=== PATIENT | female | born 1950 | race Caucasian/White ===

== ENCOUNTER 2016-04-27 17:07 | Inpatient (IN) | payer MEDICARE, OTHER ==
[2016-04-27] VITALS (10 sets, daily range): BP systolic 89–115; BP diastolic 53–70
[~2016-04-27] VITALS: Ht 165.1 cm; Wt 77.6 kg
[2016-04-27] MEDS ORDERED: IV NS 0.9% 1,000 ML ONE (17:21)
[2016-04-27] MEDS ORDERED: IV SET PRIMARY PUMP SET 1 EA INFUS.SET MC ONE ×6 (17:21→23:17)
[2016-04-27 17:26] LABS: BASOPHILS % (AUTO) 0.2 % (0.0-2.0); DIFF TOTAL % 100 %; EOSINOPHILS % (AUTO) 0.1 % (0.0-6.0); HEMATOCRIT 22 % (33-45); LYMPHOCYTES # (AUTO) 2.4 /CMM (0.8-4.8); LYMPHOCYTES % (AUTO) 12.5 % (20.0-44.0); MEAN CORPUSCULAR HEMOGLOBIN 27 PG (26.0-33.0); MEAN CORPUSCULAR HGB CONC 32 g/dl (31.0-36.0); MEAN CORPUSCULAR VOLUME 86 fL (82-100); MONOCYTES # (AUTO) 1.4 /CMM (0.1-1.30); MONOCYTES % (AUTO) 7.2 % (2.0-12.0); NEUTROPHILS # (AUTO) 15.4 /CMM (1.8-8.9); PLATELET COUNT (AUTO) 78 /CMM (150-450); RED BLOOD CELL COUNT(AUTO) 2.53 MIL/uL (4.0-5.2); WHITE BLOOD COUNT (AUTO) 19.2 K/uL (4.3-11.0)
[2016-04-27] MEDS ORDERED: IV NS 0.9% 1,000 ML BAG IV ONE (17:30)
[2016-04-27 17:35] LABS: HEMOGLOBIN 6.9 g/dL (11.5-14.8)
[2016-04-27] MEDS ORDERED: METO5TAB87 GT (17:37)
[2016-04-27] MEDS ORDERED: FAMO-131 GT (17:37)
[2016-04-27] MEDS ORDERED: ESCI5TAB PO (17:37)
[2016-04-27] MEDS ORDERED: INSU3INS6 SQ (17:37)
[2016-04-27] MEDS ORDERED: POTA40LI2 GT (17:37)
[2016-04-27] MEDS ORDERED: FURO-145 GT (17:37)
[2016-04-27] MEDS ORDERED: DEXA1TAB2 GT (17:37)
[2016-04-27 17:38] LABS: INR 1.31 (0.87-1.13); PROTHROMBIN TIME 13.8 SECS (9.5-12.7)
[2016-04-27 17:46] LABS: TROPONIN I 0.022 ng/mL (0.00-0.056)
[2016-04-27 17:50] LABS: ALANINE AMINOTRANSFERASE 32 U/L (12-78); ANION GAP 20 (5-14); ASPARTATE AMINOTRANSFERASE 77 U/L (15-37); BILIRUBIN,DIRECT 0.1 mg/dL (0.0-0.2); BILIRUBIN,TOTAL 0.4 mg/dL (0.2-1.0); CALCIUM, SERUM 7.2 mg/dL (8.5-10.1); CARBON DIOXIDE 23 mmol/L (21-32); CHLORIDE 94 mmol/L (98-107); CREATININE 2.1 mg/dL (0.6-1.3); GFR 23 mL/min (>60); GLUCOSE 188 mg/dL (74-106); INDIRECT BILIRUBIN 0.3 mg/dL (0.0-1.1); POTASSIUM 4.4 mmol/L (3.5-5.1); SODIUM SERUM 133 mmol/L (136-145); TOTAL PROTEIN, SERUM 4.5 g/dL (6.4-8.2)
[2016-04-27] MEDS ORDERED: PANTOPRAZOLE 40 MG VIAL IV ONE (18:00)
[2016-04-27 18:02] LABS: ALBUMIN 1.1 g/dL (3.4-5.0); UREA NITROGEN, BLOOD 132 mg/dL (7-18)
[2016-04-27] MEDS ORDERED: PANTOPRAZOLE 40 MG VIAL ONE (18:08)
[2016-04-27 18:09] LABS: KETONES,URINE Trace (NEGATIVE); LEUKOCYTE ESTERASE ,URINE Trace (NEGATIVE)
[2016-04-27 18:11] LABS: ADD UA MICROSCOPIC YES
[2016-04-27 18:13] LABS: LACTIC ACID 9.5 mmol/L (0.4-2.0)
[2016-04-27 18:19] LABS: *LACTIC ACID REFLEX FLAG YES
[2016-04-27] MEDS ORDERED: ALBUMIN 5% 25 GM in PREMIX 1 EA IV ONE (18:30)
[2016-04-27] MEDS ORDERED: PIPERACILLIN /TAZOBACTAM 3.375 G in IV D5W 50 ML IV ONE (18:30)
[2016-04-27 18:32] LABS: ADD URINE CULTURE YES; RBC,URINE 21-50 /HPF (0-2)
[2016-04-27] MEDS ORDERED: ALBUMIN 25% 12.5 GM/50 ML BOTTLE IV ONE (19:00)
[2016-04-27] MEDS ORDERED: BLOOD IV SET 1 EA INFUS.SET MC ONE ×3 (19:32→22:06)
[2016-04-27] MEDS ORDERED: IV NS 0.9% 250 ML IV ONE ×3 (19:32→23:05)
[2016-04-27] MEDS ORDERED: CHOL100044 GT (22:58)
[2016-04-27] MEDS ORDERED: ALOG25TA PO (22:58)
[2016-04-27] MEDS ORDERED: MEMA5TAB PO (22:58)
[2016-04-27] MEDS ORDERED: LORA0.5T PO (22:58)
[2016-04-27] MEDS ORDERED: PRAM0.5T3 PO (22:58)
[2016-04-27] MEDS ORDERED: TRAM2TAB PO (22:58)
[2016-04-27] MEDS ORDERED: DABR75CA PO (22:58)
[2016-04-27] MEDS ORDERED: HYDR-3326 GT (22:58)
[2016-04-27] MEDS ORDERED: SIMV40TA2 PO (22:58)
[2016-04-27] MEDS ORDERED: NATE60TA4 PO (22:58)
[2016-04-27] MEDS ORDERED: MEGE400O PO (22:58)
[2016-04-27] MEDS ORDERED: GABA-532 PO (22:58)
[2016-04-27] MEDS ORDERED: LEVE250T2 PO (22:58)
[2016-04-27] MEDS ORDERED: MUPI15CR12 TP (22:58)
[2016-04-27] MEDS ORDERED: ALBU8.5H2 INH (22:58)
[2016-04-27] MEDS ORDERED: ALBUMIN 25% 25 GM in PREMIX 1 EA IV SCH (23:00)
[2016-04-27] MEDS ORDERED: IV D5W 50 ML IV ONE (23:03)
[2016-04-27] MEDS ORDERED: PIPERACILLIN /TAZOBACTAM 3.375 G VIAL IV ONE (23:03)
[2016-04-27] MEDS ORDERED: SECONDARY IV SET 1 EA INFUS.SET MC ONE (23:05)
[2016-04-27 23:11] LABS: IRON, SERUM 24 ug/dl (50-175); PERCENT SATURATION 21 % (14-33); TOTAL IRON BINDING CAPACITY 117 ug/dl (250-450)
[2016-04-27] MEDS ORDERED: IV D5W 250 ML IV ONE (23:16)
[2016-04-27] MEDS ORDERED: VANCOMYCIN 1 GM VIAL ONE (23:16)
[2016-04-27] MEDS ORDERED: ALBUMIN 25% 100 ML IV ONE (23:17)
[2016-04-27] MEDS: PIPERACILLIN /TAZOBACTAM 3.375 G in IV D5W 50 ML IV SCH (23:19)
[2016-04-27] MEDS ORDERED: VANCOMYCIN 1 GM in IV D5W 250 ML IV ONE (23:30)
[2016-04-28] VITALS (49 sets, daily range): BP systolic 76–142; BP diastolic 47–85
[2016-04-28] MEDS: ALBUMIN 25% 25 GM in PREMIX 1 EA IV SCH ×3 (00:16→16:03)
[2016-04-28] MEDS ORDERED: IV D5/0.45 NACL 500 ML IV PRN (01:00)
[2016-04-28] MEDS ORDERED: DEXTROSE 50%-WATER 50 ML DISP.SYRIN IV PRN (02:00)
[2016-04-28] MEDS ORDERED: IV D5/0.45 NACL 1,000 ML IV ONE (02:25)
[2016-04-28 02:29] LABS: DIFF TOTAL % 100 %; EOSINOPHILS % (AUTO) 0.2 % (0.0-6.0); HEMATOCRIT 28 % (33-45); LYMPHOCYTES # (AUTO) 1.6 /CMM (0.8-4.8); LYMPHOCYTES % (AUTO) 11.5 % (20.0-44.0); MEAN CORPUSCULAR HEMOGLOBIN 27 PG (26.0-33.0); MEAN CORPUSCULAR HGB CONC 32 g/dl (31.0-36.0); MEAN CORPUSCULAR VOLUME 85 fL (82-100); MONOCYTES # (AUTO) 0.8 /CMM (0.1-1.30); MONOCYTES % (AUTO) 6.1 % (2.0-12.0); NEUTROPHILS # (AUTO) 11.4 /CMM (1.8-8.9); NEUTROPHILS % (AUTO) 82.2 % (43.0-81.0); PLATELET COUNT (AUTO) 53 /CMM (150-450); WHITE BLOOD COUNT (AUTO) 13.9 K/uL (4.3-11.0)
[2016-04-28] MEDS: IV D5/0.45 NACL 1,000 ML IV PRN ×2 (02:33→10:22)
[2016-04-28 03:26] LABS: ANISOCYTOSIS 2+; BAND % (MANUAL) 8 % (0.0-5.0); BASOPHILS % (MANUAL) 0 % (0.0-2.0); EOSINOPHILS % (MANUAL) 1 % (0-4); LYMPHOCYTES % (MANUAL) 10 % (16-48); PLATELET ESTIMATE DECREASED
[2016-04-28 04:57] LABS: BASOPHILS % (AUTO) 0.1 % (0.0-2.0); DIFF TOTAL % 100 %; EOSINOPHILS % (AUTO) 0.1 % (0.0-6.0); HEMATOCRIT 28 % (33-45); HEMOGLOBIN 9.3 g/dL (11.5-14.8); LYMPHOCYTES # (AUTO) 1.4 /CMM (0.8-4.8); LYMPHOCYTES % (AUTO) 9.9 % (20.0-44.0); MEAN CORPUSCULAR HEMOGLOBIN 28 PG (26.0-33.0); MEAN CORPUSCULAR HGB CONC 33 g/dl (31.0-36.0); MEAN CORPUSCULAR VOLUME 85 fL (82-100); MONOCYTES % (AUTO) 7.1 % (2.0-12.0); NEUTROPHILS # (AUTO) 11.8 /CMM (1.8-8.9); NEUTROPHILS % (AUTO) 82.8 % (43.0-81.0); RED BLOOD CELL COUNT(AUTO) 3.33 MIL/uL (4.0-5.2); WHITE BLOOD COUNT (AUTO) 14.3 K/uL (4.3-11.0)
[2016-04-28 05:10] LABS: PLATELET COUNT (AUTO) 45 /CMM (150-450)
[2016-04-28] MEDS ORDERED: PIPERACILLIN /TAZOBACTAM 3.375 G VIAL IV ONE (05:18)
[2016-04-28] MEDS ORDERED: IV D5W 50 ML IV ONE (05:19)
[2016-04-28] MEDS: BLOOD SUGAR DIAGNOSTIC 1 EACH STRIP IN SCH ×3 (05:28→18:30)
[2016-04-28 05:36] LABS: BILIRUBIN,TOTAL 0.8 mg/dL (0.2-1.0); CALCIUM, SERUM 6.9 mg/dL (8.5-10.1); CREATININE 1.7 mg/dL (0.6-1.3); PHOSPHORUS 6.7 mg/dL (2.5-4.9); POTASSIUM 3.8 mmol/L (3.5-5.1); TOTAL PROTEIN, SERUM 4.8 g/dL (6.4-8.2)
[2016-04-28] MEDS: PIPERACILLIN /TAZOBACTAM 3.375 G in IV D5W 50 ML IV SCH ×3 (05:47→18:30)
[2016-04-28 06:08] LABS: ANISOCYTOSIS 2+
[2016-04-28 06:09] LABS: PLATELET ESTIMATE DECREASED
[2016-04-28] MEDS ORDERED: IV SET PRIMARY PUMP SET 1 EA INFUS.SET MC ONE (08:50)
[2016-04-28] MEDS ORDERED: SECONDARY IV SET 1 EA INFUS.SET MC ONE (08:50)
[2016-04-28] MEDS: LEVETIRACETAM (500MG) 250 MG in IV NS 0.9% 100 ML IV SCH ×2 (08:56→21:49)
[2016-04-28] MEDS: PANTOPRAZOLE 40 MG VIAL IV SCH ×2 (08:56→18:11)
[2016-04-28] MEDS: DEXAMETHASONE SOD PHOSPHATE 4 MG/ML VIAL IV SCH ×3 (10:21→21:49)
[2016-04-28] MEDS ORDERED: FEE PK DOSING 1 MIN EA MC ONE (10:43)
[2016-04-28] MEDS ORDERED: Z GUARD REMEDY 2 OZ OINT TP PRN (11:00)
[2016-04-28] MEDS: Z GUARD REMEDY 2 OZ OINT TP SCH (13:16)
[2016-04-28] MEDS: INSULIN REGULAR, HUMAN 100 UNIT/ML 3 ML VIAL SQ PRN (13:24)
[2016-04-28] MEDS ORDERED: GLYTROL 1,000 ML BAG GT PRN (17:00)
[2016-04-28 17:30] LABS: THYROID STIMULATING HORMONE 4.402 uIU/mL (0.358-3.74)
[2016-04-28] MEDS: IV D5/ 0.9% NACL 1,000 ML IV PRN (18:12)
[2016-04-28] MEDS: INSULIN DETEMIR 100 UNIT/ML CARTRIDGE SQ SCH (23:09)
[2016-04-28] MEDS: VANCOMYCIN 1 GM in IV D5W 250 ML IV SCH (23:09)
[2016-04-29] VITALS (48 sets, daily range): BP systolic 98–143; BP diastolic 48–69
[2016-04-29] MEDS: BLOOD SUGAR DIAGNOSTIC 1 EACH STRIP IN SCH ×5 (00:15→23:45)
[2016-04-29] MEDS: PIPERACILLIN /TAZOBACTAM 3.375 G in IV D5W 50 ML IV SCH ×5 (00:53→23:45)
[2016-04-29] MEDS: MORPHINE SULFATE INJ 2 MG/ML DISP.SYRIN IM PRN ×4 (00:57→20:44)
[2016-04-29 04:58] LABS: BASOPHILS % (AUTO) 0.1 % (0.0-2.0); DIFF TOTAL % 100 %; HEMATOCRIT 27 % (33-45); HEMOGLOBIN 8.7 g/dL (11.5-14.8); LYMPHOCYTES % (AUTO) 8.8 % (20.0-44.0); MEAN CORPUSCULAR HEMOGLOBIN 27 PG (26.0-33.0); MEAN CORPUSCULAR HGB CONC 32 g/dl (31.0-36.0); MEAN CORPUSCULAR VOLUME 86 fL (82-100); MONOCYTES # (AUTO) 0.4 /CMM (0.1-1.30); MONOCYTES % (AUTO) 3.3 % (2.0-12.0); NEUTROPHILS % (AUTO) 87.8 % (43.0-81.0); PLATELET COUNT (AUTO) 51 /CMM (150-450); RED BLOOD CELL COUNT(AUTO) 3.17 MIL/uL (4.0-5.2); WHITE BLOOD COUNT (AUTO) 11.4 K/uL (4.3-11.0)
[2016-04-29] MEDS: DEXAMETHASONE SOD PHOSPHATE 4 MG/ML VIAL IV SCH ×3 (05:19→20:11)
[2016-04-29 05:23] LABS: ANISOCYTOSIS 2+; BAND % (MANUAL) 3 % (0.0-5.0); BASOPHILS % (MANUAL) 0 % (0.0-2.0); EOSINOPHILS % (MANUAL) 0 % (0-4); LYMPHOCYTES % (MANUAL) 11 % (16-48); PLATELET ESTIMATE DECREASED
[2016-04-29 05:25] LABS: CALCIUM, SERUM 6.8 mg/dL (8.5-10.1); CREATININE 1.6 mg/dL (0.6-1.3); PHOSPHORUS 6.2 mg/dL (2.5-4.9); POTASSIUM 3.3 mmol/L (3.5-5.1)
[2016-04-29] MEDS: INSULIN REGULAR, HUMAN 100 UNIT/ML 3 ML VIAL SQ PRN (05:31)
[2016-04-29] MEDS: PANTOPRAZOLE 40 MG VIAL IV SCH ×2 (09:16→17:06)
[2016-04-29] MEDS: LEVETIRACETAM (500MG) 250 MG in IV NS 0.9% 100 ML IV SCH ×2 (09:16→20:11)
[2016-04-29] MEDS: Z GUARD REMEDY 2 OZ OINT TP SCH (09:17)
[2016-04-29] MEDS ORDERED: POTASSIUM CHLORIDE 20 MEQ POWDER PACKET GT ONE (11:15)
[2016-04-29] MEDS ORDERED: Calcium Gluconate 1GM/10ML 4.65 MEQ in IV D5W 50 ML IV ONE (12:00)
[2016-04-29] MEDS ORDERED: SECONDARY IV SET 1 EA INFUS.SET MC ONE (12:15)
[2016-04-29 12:25] LABS: *SPE ALBUMIN 2.6 g/dL (2.9-4.4)
[2016-04-29] MEDS: DAKINS QUARTER STRENGTH (0.125%) 480 ML BOTTLE TOP SCH (17:07)
[2016-04-29] MEDS: INSULIN DETEMIR 100 UNIT/ML CARTRIDGE SQ SCH (22:00)
[2016-04-29] MEDS: VANCOMYCIN 1 GM in IV D5W 250 ML IV SCH (22:43)
[2016-04-30] VITALS (20 sets, daily range): BP systolic 65–133; BP diastolic 33–67
[2016-04-30] MEDS: MORPHINE SULFATE INJ 2 MG/ML DISP.SYRIN IM PRN ×3 (02:51→10:21)
[2016-04-30 05:02] LABS: DIFF TOTAL % 100 %; HEMATOCRIT 31 % (33-45); HEMOGLOBIN 9.9 g/dL (11.5-14.8); LYMPHOCYTES # (AUTO) 1.2 /CMM (0.8-4.8); LYMPHOCYTES % (AUTO) 7.6 % (20.0-44.0); MEAN CORPUSCULAR HEMOGLOBIN 28 PG (26.0-33.0); MEAN CORPUSCULAR HGB CONC 32 g/dl (31.0-36.0); MEAN CORPUSCULAR VOLUME 86 fL (82-100); MONOCYTES # (AUTO) 0.8 /CMM (0.1-1.30); MONOCYTES % (AUTO) 5.1 % (2.0-12.0); NEUTROPHILS # (AUTO) 14.1 /CMM (1.8-8.9); NEUTROPHILS % (AUTO) 87.3 % (43.0-81.0); PLATELET COUNT (AUTO) 92 /CMM (150-450); RED BLOOD CELL COUNT(AUTO) 3.58 MIL/uL (4.0-5.2); WHITE BLOOD COUNT (AUTO) 16.2 K/uL (4.3-11.0)
[2016-04-30] MEDS: DEXAMETHASONE SOD PHOSPHATE 4 MG/ML VIAL IV SCH ×3 (05:02→21:49)
[2016-04-30] MEDS: PIPERACILLIN /TAZOBACTAM 3.375 G in IV D5W 50 ML IV SCH ×4 (05:02→23:45)
[2016-04-30] MEDS: BLOOD SUGAR DIAGNOSTIC 1 EACH STRIP IN SCH ×4 (05:13→22:00)
[2016-04-30 05:21] LABS: CALCIUM, SERUM 7.4 mg/dL (8.5-10.1); CREATININE 1.7 mg/dL (0.6-1.3); POTASSIUM 3.4 mmol/L (3.5-5.1)
[2016-04-30 06:14] LABS: ANISOCYTOSIS 2+; BAND % (MANUAL) 4 % (0.0-5.0); BASOPHILS % (MANUAL) 0 % (0.0-2.0); EOSINOPHILS % (MANUAL) 0 % (0-4); LYMPHOCYTES % (MANUAL) 4 % (16-48); PLATELET ESTIMATE DECREASED
[2016-04-30] MEDS: DAKINS QUARTER STRENGTH (0.125%) 480 ML BOTTLE TOP SCH (08:31)
[2016-04-30] MEDS: Z GUARD REMEDY 2 OZ OINT TP SCH (08:31)
[2016-04-30] MEDS: PANTOPRAZOLE 40 MG VIAL IV SCH ×2 (08:31→17:00)
[2016-04-30] MEDS ORDERED: SECONDARY IV SET 1 EA INFUS.SET MC ONE ×3 (09:15→23:47)
[2016-04-30] MEDS ORDERED: IV SET PRIMARY PUMP SET 1 EA INFUS.SET MC ONE (09:15)
[2016-04-30] MEDS: IV D5/ 0.9% NACL 1,000 ML IV PRN (09:20)
[2016-04-30] MEDS: LEVETIRACETAM (500MG) 250 MG in IV NS 0.9% 100 ML IV SCH ×2 (09:20→21:49)
[2016-04-30] MEDS ORDERED: POTASSIUM CHLORIDE 20 MEQ POWDER PACKET GT ONE (10:00)
[2016-04-30] MEDS ORDERED: MORPHINE SULFATE INJ 2 MG/ML DISP.SYRIN IM SCH (14:00)
[2016-04-30] MEDS: MORPHINE SULFATE INJ 2 MG/ML DISP.SYRIN IV SCH ×3 (16:51→20:14)
[2016-04-30] MEDS: LINEZOLID RTU BAG 600 MG in PREMIX 1 EA IV SCH (20:32)
[2016-04-30] MEDS: INSULIN REGULAR, HUMAN 100 UNIT/ML 3 ML VIAL SQ PRN (22:04)
[2016-04-30] MEDS: INSULIN DETEMIR 100 UNIT/ML CARTRIDGE SQ SCH (22:06)
[2016-05-01] VITALS: BP 78/40
[2016-05-01] MEDS: MORPHINE SULFATE INJ 2 MG/ML DISP.SYRIN IV SCH ×9 (02:00→15:39)
[2016-05-01 04:00] VITALS: BP 71/29
[2016-05-01] MEDS: DEXAMETHASONE SOD PHOSPHATE 4 MG/ML VIAL IV SCH ×2 (05:14→12:08)
[2016-05-01] MEDS: PIPERACILLIN /TAZOBACTAM 3.375 G in IV D5W 50 ML IV SCH ×2 (05:15→12:08)
[2016-05-01] MEDS: BLOOD SUGAR DIAGNOSTIC 1 EACH STRIP IN SCH ×3 (05:40→17:13)
[2016-05-01] MEDS: INSULIN REGULAR, HUMAN 100 UNIT/ML 3 ML VIAL SQ PRN (05:41)
[2016-05-01 06:49] LABS: DIFF TOTAL % 100 %; HEMATOCRIT 27 % (33-45); HEMOGLOBIN 8.6 g/dL (11.5-14.8); LYMPHOCYTES # (AUTO) 0.6 /CMM (0.8-4.8); LYMPHOCYTES % (AUTO) 3.2 % (20.0-44.0); MEAN CORPUSCULAR HEMOGLOBIN 28 PG (26.0-33.0); MEAN CORPUSCULAR HGB CONC 32 g/dl (31.0-36.0); MEAN CORPUSCULAR VOLUME 88 fL (82-100); MONOCYTES # (AUTO) 0.5 /CMM (0.1-1.30); MONOCYTES % (AUTO) 2.8 % (2.0-12.0); NEUTROPHILS # (AUTO) 17.6 /CMM (1.8-8.9); PLATELET COUNT (AUTO) 90 /CMM (150-450); RED BLOOD CELL COUNT(AUTO) 3.08 MIL/uL (4.0-5.2); WHITE BLOOD COUNT (AUTO) 18.7 K/uL (4.3-11.0)
[2016-05-01 07:23] LABS: CALCIUM, SERUM 7.6 mg/dL (8.5-10.1); CREATININE 2.3 mg/dL (0.6-1.3); POTASSIUM 4.5 mmol/L (3.5-5.1)
[2016-05-01 08:00] VITALS: BP_SYST 63; BP_SYST 71; BP_DIAS 29
[2016-05-01 08:59] LABS: BAND % (MANUAL) 7 % (0.0-5.0); LYMPHOCYTES % (MANUAL) 7 % (16-48); PLATELET ESTIMATE DECREASED
[2016-05-01] MEDS: PANTOPRAZOLE 40 MG VIAL IV SCH ×2 (09:05→16:15)
[2016-05-01] MEDS: DAKINS QUARTER STRENGTH (0.125%) 480 ML BOTTLE TOP SCH (09:05)
[2016-05-01] MEDS: Z GUARD REMEDY 2 OZ OINT TP SCH (09:05)
[2016-05-01] MEDS: LINEZOLID RTU BAG 600 MG in PREMIX 1 EA IV SCH (09:06)
[2016-05-01] MEDS: LEVETIRACETAM (500MG) 250 MG in IV NS 0.9% 100 ML IV SCH (09:09)
[2016-05-01 12:00] VITALS: BP 63/29
[2016-05-01] MEDS ORDERED: METRONIDAZOLE 500MG/ NS 100ML 500 MG in PREMIX 1 EA IV SCH (15:30)
[2016-05-01 16:00] VITALS: BP_SYST 56; BP_DIAS 25; BP_DIAS 26
[2016-05-01] MEDS ORDERED: SECONDARY IV SET 1 EA INFUS.SET MC ONE (16:16)
[2016-05-01] MEDS ORDERED: MORPHINE SULFATE PF DRIP 250 MG in IV D5W 240 ML IV PRN ×4 (17:30)
[2016-05-01] MEDS ORDERED: LORAZEPAM INJ 2 MG/ML VIAL IV PRN (17:30)
[2016-05-01] MEDS ORDERED: SET PCA INFUSE SET 1 EA INFUS.SET MC ONE (18:25)
[2016-05-01] MEDS ORDERED: IV NS 0.9% 250 ML IV ONE (18:40)
[2016-05-01] MEDS ORDERED: IV SET PRIMARY PUMP SET 1 EA INFUS.SET MC ONE (18:41)
[2016-05-01] MEDS ORDERED: CEFTAZIDIME 2 G in IV D5W 50 ML IV SCH (21:00)
== END 2016-05-02 07:05 | disposition expired | DRG 871 ==
LOC: ER 17:08 → ICU 19:55 → TELE1 04-30 09:09 → MEDSG1 05-01 09:51 → UNDODISIN 05-02 07:09
PROVIDERS: ADMIT Nurse Practitioner Acute Care; ATTEND Nurse Practitioner Acute Care
PROC: 30233N1 Transfusion of Nonautologous Red Blood Cells into Peripheral Vein, Percutaneous Approach (ICD-10-PCS; principal; 2016-04-27)
DX: A41.9 Sepsis, unspecified organism (principal); Z51.5 Encounter for palliative care; E43 Unspecified severe protein-calorie malnutrition; J18.9 Pneumonia, unspecified organism; N17.0 Acute kidney failure with tubular necrosis; G93.40 Encephalopathy, unspecified; I61.9 Nontraumatic intracerebral hemorrhage, unspecified; K92.2 Gastrointestinal hemorrhage, unspecified; N39.0 Urinary tract infection, site not specified; J91.0 Malignant pleural effusion; E87.1 Hypo-osmolality and hyponatremia; C78.02 Secondary malignant neoplasm of left lung; C79.31 Secondary malignant neoplasm of brain; C78.01 Secondary malignant neoplasm of right lung; D69.3 Immune thrombocytopenic purpura; I10 Essential (primary) hypertension; F32.9 Major depressive disorder, single episode, unspecified; E11.9 Type 2 diabetes mellitus without complications; D64.9 Anemia, unspecified; Z66 Do not resuscitate; F03.90 Unspecified dementia, unspecified severity, without behavioral disturbance, psychotic disturbance, mood disturbance, and anxiety; Z85.820 Personal history of malignant melanoma of skin; R19.7 Diarrhea, unspecified; E83.51 Hypocalcemia; D69.59 Other secondary thrombocytopenia; E78.5 Hyperlipidemia, unspecified; E86.9 Volume depletion, unspecified; R65.20 Severe sepsis without septic shock; Z87.891 Personal history of nicotine dependence; Z92.21 Personal history of antineoplastic chemotherapy; Z92.3 Personal history of irradiation; C43.9 Malignant melanoma of skin, unspecified
CPT/HCPCS: 36415; 70450-TC; 71010-TC; 71250-TC; 80048-TC; 80053-TC; 80061-TC; 80076-TC; 80202-TC; 81000-TC; 82728-TC; 82746; 82962-TC; 83540-TC; 83605-TC; 83735-TC; 83880; 84100-TC; 84155; 84165; 84439-TC; 84443-TC; 84484-TC; 85025-TC; 85730-TC; 86850-TC; 86921-TC; 87040-TC; 87070-TC; 87081-TC; 87086-TC; 87186-TC; 92611-TC; 93307-TC; 94799-TC; A4216; A4606; A6253; A6403; C9113; J0610; J0713; J1100; J1815; J1953; J2020; J2270; J2274; J2543; J3370; J3490; J7030; J7042; J7050; J7060; P9016-BL; P9045; P9047; Z7610